=== PATIENT | female | born 1940 | race Hispanic/Latino ===

== ENCOUNTER 2016-08-20 10:03 | Outpatient (CLI) | payer MEDICARE ==
[2016-08-20 10:31] LABS: Hematocrit 42.1 % (30.3-42.9); Hemoglobin 13.7 gm/dl (10.1-14.3); Mean Corpuscular HGB Conc 33 % (30-34); Mean Corpuscular Hemoglobin 30 pg (28-32); Mean Corpuscular Volume 93 fl (79-97); Platelet Count 225 K/mm3 (140-440); Red Blood Count 4.55 M/mm3 (3.65-5.03); Red Cell Distribution Width 14.2 % (13.2-15.2); White Blood Count 6.9 K/mm3 (4.5-11.0)
[2016-08-20 10:59] LABS: Alanine Aminotransferase 11 units/L (7-56); Albumin 4.1 g/dL (3.9-5); Albumin/Globulin Ratio 1.8 %; Alkaline Phosphatase 90 units/L (35-129); Anion Gap 16 mmol/L; BUN/Creatinine Ratio 22.85; Bilirubin,Total 0.4 mg/dL (0.1-1.2); Blood Urea Nitrogen 16 mg/dL (7-17); Calcium 9.2 mg/dL (8.4-10.2); Carbon Dioxide 28 mmol/L (22-30); Chloride 102.9 mmol/L (98-107); Cholesterol 168 mg/dL (50-199); Glucose 81 mg/dL (65-100); HDL Cholesterol 105 mg/dL (40-59); LDL Cholesterol,Direct 49 mg/dL (50-130); Potassium 3.8 mmol/L (3.6-5.0); Sodium 143 mmol/L (137-145); Total Protein 6.4 g/dL (6.3-8.2); Triglycerides 72 mg/dL (2-149)
[2016-08-20] MEDS ORDERED: NACL ONE (10:59)
--- NOTE | 2016-08-20 14:52 | Cat Scan Report ---
CTA CHEST: Technique: Helical CT following IV contrast. Pulmonary embolus protocol. Sagittal and coronal reformatted images. Rotational MIP images. Findings: Contrast bolus is satisfactory. No pulmonary embolus is identified. There are moderate emphysematous changes in both lungs. A 1 cm partially calcified nodule is noted in the posterior left lower lobe which probably represents a granuloma. The thyroid gland, tracheobronchial tree, esophagus, heart, pericardium, mediastinal vessels, and bony thorax are unremarkable. Impression: No evidence for pulmonary embolus. Left lower lobe nodule most consistent with a granuloma. Consider short term follow. Emphysema.
--- NOTE | 2016-08-20 17:34 | Vascular Lab Report ---
LOWER EXTREMITY VENOUS DUPLEX: REASON FOR EXAM: Bilateral leg swelling. COMMENTS ON THE RIGHT: All veins visualized are freely compressible without evidence of internal echogenicity. Flow is spontaneous and phasic throughout. COMMENTS ON THE LEFT: All veins visualized are freely compressible without evidence of internal echogenicity. Flow is spontaneous and phasic throughout. IMPRESSION: No evidence of acute or chronic deep venous thrombosis in either lower extremity.
== END 2016-08-20 10:04 | disposition home or self-care (01) ==
LOC: VAS 10:03
PROVIDERS: ATTEND Internal Medicine
DX: I26.99 Other pulmonary embolism without acute cor pulmonale (principal); R91.1 Solitary pulmonary nodule; J43.9 Emphysema, unspecified; M79.89 Other specified soft tissue disorders
CPT/HCPCS: 36415; 71275; 80053; 80061; 82785; 84439; 84443; 85027; 93970